=== PATIENT | male | born 1970 | race Caucasian/White ===

== ENCOUNTER 2017-03-14 17:01 | Emergency (ER) | payer SELFPAY ==
[2017-03-14 17:20] VITALS: BP 155/112
[2017-03-14] MEDS ORDERED: KETOROLAC 60 MG/2 ML VIAL. IM ONE ×2 (18:45→18:55)
--- NOTE | 2017-03-14 18:45 | PHYS DOC ---
Past History Past Medical History: No Pertinent History Past Surgical History: No Surgical History, Tonsillectomy Alcohol Use: Occasionally Drug Use: None Adult General Chief Complaint Chief Complaint: Neck Pain [facility] HPI 46-year-old male who does [employer] now status post injury while wrestling complaining of right upper back pain. Patient states he was struggling strenuously during a wrestling match after which his right upper back was very sore and slightly swollen. He did not have a fall on it nor was she struck violently. His shoulder blade and his shoulder and collarbone are not tender and he has normal painless range of motion of his neck. The soft tissue in his right upper back is swollen and tender and he feels he needs a Toradol shot and some Flexeril for muscle spasm Review of Systems Review of Systems Constitutional: Denies fever or chills [] Eyes: Denies change in visual acuity, redness, or eye pain [] HENT: Denies nasal congestion or sore throat [] Respiratory: Denies cough or shortness of breath [] Cardiovascular: No additional information not addressed in HPI [] GI: Denies abdominal pain, nausea, vomiting, bloody stools or diarrhea [] : Denies dysuria or hematuria [] Musculoskeletal: Denies back pain or joint pain [] Integument: Denies rash or skin lesions [] Neurologic: Denies headache, focal weakness or sensory changes [] Endocrine: Denies polyuria or polydipsia [] Physical Exam Physical Exam Well-appearing patient no acute distress. Mild soft tissue swelling soft tissue tenderness in the distribution of the right posterior trapezius muscle. Patient with nontender shoulder before meals joint and clavicle. Nontender C-spine with normal painless range of motion. Abdomen with no bony tenderness. Soft tissue tenderness and spasm only in the right upper back area Constitutional: Well developed, well nourished, no acute distress, non-toxic appearance. [] HENT: Normocephalic, atraumatic, bilateral external ears normal, oropharynx moist, no oral exudates, nose normal. [] Eyes: PERRLA, EOMI, conjunctiva normal, no discharge. [] Neck: Normal range of motion, no tenderness, supple, no stridor. [] Cardiovascular:Heart rate regular rhythm, no murmur [] Lungs & Thorax: Bilateral breath sounds clear to auscultation [] Abdomen: Bowel sounds normal, soft, no tenderness, no masses, no pulsatile masses. [] Skin: Warm, dry, no erythema, no rash. [] Back: As above no CVA tenderness. [] Extremities: No tenderness, no cyanosis, no clubbing, ROM intact, no edema. [] Neurologic: Alert and oriented X 3, normal motor function, normal sensory function, no focal deficits noted. [] Psychologic: Affect normal, judgement normal, mood normal. [] Current Patient Data Vital Signs Vital Signs Date Time Temp Pulse Resp B/P (MAP) Pulse Ox O2 Delivery O2 Flow Rate FiO2 03/14/17 17:20 98.3 91 16 95 Room Air EKG EKG [] Radiology/Procedures Radiology/Procedures [] Course & Med Decision Making Course & Med Decision Making Pertinent Labs and Imaging studies reviewed. (See chart for details) Signs and symptoms consistent with dorsal strain with muscle spasm. Patient has ice pack in place given NSAIDs. Discussed with patient will prescribe Flexeril. No further workup or treatment indicated at this time and specifically no x-ray evaluation is clinically indicated. Patient with no other injuries. He agrees with outpatient follow-up and strict return precautions given. Patient is aware that she [employer] or any martial art is a highly risky behavior and he will constantly be at risk for serious injury including a potentially disabling injury. Patient enjoys his pursuits and is aware of these risks.[] Dragon Disclaimer Dragon Disclaimer This chart was dictated in whole or in part using Voice Recognition software in a busy, high-work load, and often noisy Emergency Department environment. It may contain unintended and wholly unrecognized errors or omissions. Departure Departure: Impression: Primary Impression: Strain, dorsal Additional Impression: Muscle spasm Disposition: HOME, SELF-CARE Condition: IMPROVED Referrals: NON,STAFF (PCP) Patient Instructions: Adductor Muscle Strain with Rehab-SportsMed, Muscle Strain Additional Instructions: You have strained her back muscles in the right upper back. Rest, apply ice, take ibuprofen 800 mg every 6 hours as well as Tylenol if needed for pain and no strenuous use of that arm until her symptoms have resolved. Follow-up with your doctor tomorrow for reevaluation and further pain control as needed. Scripts Tramadol Hcl (ULTRAM) 50 Mg Tablet 50 MG PO PRN Q6HRS Y for PAIN, #8 TAB Prov: KATHLEEN PIÑA MD 03/14/17 Cyclobenzaprine Hcl (CYCLOBENZAPRINE HCL) 10 Mg Tablet 1 TAB PO TID for MUSCLE SPASMS, #21 TAB Prov: KATHLEEN PIÑA MD 03/14/17 Problem Qualifiers KATHLEEN PIÑA MD Mar 14, 2017 18:45
[2017-03-14] MEDS ORDERED: CYCL-331 PO (19:44)
[2017-03-14] MEDS ORDERED: TRAM-48 PO (19:47)
== END 2017-03-14 19:59 | disposition home or self-care (01) ==
LOC: ER 17:01
DX: S29.012A Strain of muscle and tendon of back wall of thorax, initial encounter (principal); X50.0XXA Overexertion from strenuous movement or load, initial encounter; Y93.72 Activity, wrestling; Y99.8 Other external cause status; Y92.89 Other specified places as the place of occurrence of the external cause
CPT/HCPCS: 96372; 99283; J1885